=== PATIENT | male | born 1980 | race Caucasian/White ===

== ENCOUNTER 2024-03-18 05:42 | Inpatient (IN) | payer BC ==
[~2024-03-18] VITALS: Ht 182.9 cm; Wt 105.3 kg
[2024-03-18 06:35] VITALS: PULSE 72; RESP 20; O2SAT 98
[2024-03-18 06:37] LABS: Basophils # (auto) 0.1 10 ^3/uL (0-0.2); Basophils % (auto) 1.1 % (0.0-2.0); Eosinophils # (auto) 0.1 10 ^3/uL (0-0.8); Eosinophils % (auto) 1.7 % (0.0-7.0); Hematocrit 49.4 % (41.0-53.0); Hemoglobin 16.4 g/dL (13.5-17.5); Lymphocytes # (auto) 1.3 10 ^3/uL (0.4-5.4); Lymphocytes % (auto) 16.7 % (10.0-50.0); Mean Corpuscular Hemoglobin 29.4 pg (28.0-32.0); Mean Corpuscular Hgb Conc. 33.3 g/dL (32.0-36.0); Mean Corpuscular Volume 88.2 fL (80.0-100.0); Monocytes # (auto) 0.6 10 ^3/uL (0-1.3); Neutrophils # (auto) 5.7 10 ^3/uL (1.6-8.6); Neutrophils % (auto) 72.5 % (37.0-80.0); Platelet Count (auto) 245 10^3/uL (140-450); Red Blood Cells 5.59 10^6/uL (4.5-5.90); Red Cell Distribution Width 14.9 % (11.8-14.3); White Blood Cell 7.9 10^3/uL (4.4-10.8)
--- NOTE | 2024-03-18 06:44 | DVH ---
CHEST RADIOGRAPH Indication: CP Technique: Single frontal view of the chest was obtained COMPARISON: None FINDINGS: Lines and Tubes: None Lungs: Diffuse increased interstitial prominence Pleura: No effusion. No pneumothorax. Cardiomediastinal contours: Cardiomegaly Bones: Unremarkable IMPRESSION: Pulmonary vascular congestion
[2024-03-18 06:49] LABS: Alanine Aminotransferase 40 U/L (7-40); Albumin 4.3 g/dL (3.2-4.8); Anion Gap 8 (5-15); Aspartate Aminotransferase 20 U/L (13-40); BUN/Creatinine Ratio 6.8 (10.0-20.0); Bilirubin, Total 0.5 mg/dL (0.2-1.0); Calcium 9.4 mg/dL (8.7-10.4); Carbon Dioxide 23 mmol/L (20-31); Potassium 4.4 mmol/L (3.5-5.1); Sodium 139 mmol/L (136-145); Total Protein 6.7 g/dL (5.7-8.2)
[2024-03-18 06:55] LABS: Alkaline Phosphatase 29 U/L (46-116); Blood Urea Nitrogen 8 mg/dL (9-23); Chloride 108 mmol/L (98-107); Glucose 108 mg/dL (74-106)
--- NOTE | 2024-03-18 06:57 | ECG ---
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
[2024-03-18 07:20] VITALS: PULSE 150; RESP 16; O2SAT 98
--- NOTE | 2024-03-18 07:48 | ED.PDOC ---
SOB-HPI HPI Comments 43 year old male presents to the ED with chief complaint of SOB. Patient reports that he has been experiencing SOB with associated symptoms of purple discoloration to hands and right hand pain since yesterday. Patient relays that he vapes regularly. Patient denies any chest pain, cough, fever, chills, dizziness, or N/V. Chief Complaint: Shortness of Breath Time Seen by MD: 07:44 Reviewed notes: Nurses Notes, Medications, Allergies Information Source: Patient Mode of Arrival: Ambulatory Severity: Moderate Timing: Days Duration: Since onset Context: At Rest PE Risk Factors: None History of: None Prehospital treatment: None Modifying Factors: Sitting up, Nothing Associated Signs and Symptoms: Hands Past Medical History PAST MEDICAL HISTORY: Denies Surgical History: Appendectomy Family History Family History: Reviewed,noncontributory to illness Social History Smoker: Other (Vapes) Alcohol: Sober Drugs: Denies Drug Use Lives In: Home Constitutional: denies: chills, diaphoresis, fatigue, fever, malaise, sweats, weakness, others EENTM: denies: blurred vision, double vision, ear bleeding, ear discharge, ear drainage, ear pain, ear ringing, eye pain, eye redness, hearing loss, mouth pain, mouth swelling, nasal discharge, nose bleeding, nose congestion, nose pain, photophobia, tearing, throat pain, throat swelling, voice changes, others Respiratory: reports: shortness of breath; denies: cough, hemoptysis, orthopnea, SOB at rest, SOB with excertion, stridor, wheezing, others Cardiovascular: denies: chest pain, dizzy spells, diaphoresis, Dyspnea on exertion, edema, irregular heart beat, left arm pain, lightheadedness, palpit ations, PND, syncope, others Gastrointestinal: denies: abdomen distended, abdominal pain, blood streaked b owels, constipated, diarrhea, dysphagia, difficulty swallowing, hematemesis, melena, nausea, poor appetite, poor fluid intake, rectal bleeding, rectal pain, vomiting, others Genitourinary: denies: burning, dysuria, flank pain, frequency, hematuria, incontinence, penile discharge, penile sore, pain, testicle pain, testicle swelling, urgency, others Neurological: denies: dizziness, fainting, headache, left sided numbness, left sided weakness, numbness, paresthesia, pre-existing deficit, right sided numbness, right sided weakness, seizure, speech problems, tingling, tremors, weakness, others Musculoskeletal: reports: others (Rt hand pain); denies: back pain, gout, joint pain, joint swelling, muscle pain, muscle stiffness, neck pain Integumetry: reports: change in color (purple discoloration to hands); denies: bruises, change in hair/nails, dryness, laceration, lesions, lumps, rash, wo unds, others Allergic/Immunocompromised: denies: Difficulty Healing, Frequent Infections, Hives, Itching, others Hematologic/Lymphatic: denies: anemia, blood clots, easy bleeding, easy bruising, swollen glands, others Endocrine: denies: excessive hunger, excessive sweating, excessive thirst, excessive urination, flushing, intolerance to cold, intolerance to heat, unexplained weight gain, unexplained weight loss, others Psychiatric: denies: anxiety, bipolar disorder, depression, hopeless, panic disorder, schizophrenia, sleepless, suicidal, others All Other Systems: Reviewed and Negative Physical Exam General Appearance: Mild Distress, Moderate Distress, Normal, Other (Sudden onset of dyspnea) HEENT: Normal ENT Inspection, PERRL/EOMI Neck: Full Range of Motion, Non-Tender, Normal, Normal Inspection Respiratory: Chest Non-Tender, Lungs Clear, No Accessory Muscle Use, No Respiratory Distress, Normal Breath Sounds Cardiovascular: Irregular, No Edema, No JVD, No Murmur, No Gallop, Normal Peripheral Pulses, Regular Rate/Rhythm, Tachycardia Breast Exam: Deferred Gastrointestinal: No Organomegaly, Non Tender, No Pulsatile Mass, Normal Bowel Sounds, Soft Genitalia: Deferred Pelvic: Deferred Rectal: Deferred Extremities: No calf tenderness, Normal capillary refill, Normal inspection, Normal range of motion, Non-tender, No pedal edema Musculoskeletal : Apperance: Normal 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 Was a procedure done?: No Differential Dx Differential Diagnosis: CHF, Dysrhythmia, Hyperventilation, Hyponatremia, Myocardial infarction, Pneumonia, Pulmonary Embolism X-Ray, Labs, Meds, VS Vital Signs Date Time Temp Pulse Resp B/P (MAP) Pulse Ox O2 Delivery O2 Flow Rate FiO2 03/18/24 12:00 124 03/18/24 11:30 124 16 104/63 (77) 98 03/18/24 09:50 144 20 112/52 (72) 98 03/18/24 09:39 145 03/18/24 09:20 129 18 107/49 (68) 98 03/18/24 08:53 134 106/64 03/18/24 08:00 140 03/18/24 07:53 140 105/54 03/18/24 07:20 98.3 150 16 105/54 (71) 98 98.3 03/18/24 07:20 150 16 98 Room Air* 0 21 03/18/24 06:56 145 03/18/24 06:35 72 20 98 Room Air* 0 21 03/18/24 06:35 98.4 72 20 133/73 (93) 98 98.4 03/18/24 06:08 153 03/18/24 05:56 98.4 72 20 133/73 (93) 98 Lab Test 03/18/24 08:53 03/18/24 07:01 03/18/24 06:11 Range/Units Troponin I High Sensitivity 12 13 13 </=54 ng/L White Blood Count 7.9 4.4-10.8 10^3/uL Red Blood Count 5.59 4.5-5.90 10^6/uL Hemoglobin 16.4 13.5-17.5 g/dL Hematocrit 49.4 41.0-53.0 % Mean Corpuscular Volume 88.2 80.0-100.0 fL Mean Corpuscular Hemoglobin 29.4 28.0-32.0 pg Mean Corpuscular Hemoglobin Concent 33.3 32.0-36.0 g/dL Red Cell Distribution Width 14.9 H 11.8-14.3 % Platelet Count 245 140-450 10^3/uL Mean Platelet Volume 8.3 6.9-10.8 fL Neutrophils (%) (Auto) 72.5 37.0-80.0 % Lymphocytes (%) (Auto) 16.7 10.0-50.0 % Monocytes (%) (Auto) 8.0 0.0-12.0 % Eosinophils (%) (Auto) 1.7 0.0-7.0 % Basophils (%) (Auto) 1.1 0.0-2.0 % Neutrophils # (Auto) 5.7 1.6-8.6 10 ^3/uL Lymphocytes # (Auto) 1.3 0.4-5.4 10 ^3/uL Monocytes # (Auto) 0.6 0-1.3 10 ^3/uL Eosinophils # (Auto) 0.1 0-0.8 10 ^3/uL Basophils # (Auto) 0.1 0-0.2 10 ^3/uL Nucleated Red Blood Cells 0.0 % Prothrombin Time 10.9 9.3-11.8 sec Prothrombin Time INR 1.03 0.9-1.15 Activated Partial Thromboplast Time 24.4 L 24.5-34.5 SEC D-Dimer, Quantitative 0.70 H 0.0-0.49 mg/L FEU Sodium Level 139 136-145 mmol/L Potassium Level 4.4 3.5-5.1 mmol/L Chloride Level 108 H 98-107 mmol/L Carbon Dioxide Level 23 20-31 mmol/L Anion Gap 8 5-15 Blood Urea Nitrogen 8 L 9-23 mg/dL Creatinine 1.18 0.700-1.30 mg/dL Glomerular Filtration Rate Calc 79 >90 mL/min BUN/Creatinine Ratio 6.8 L 10.0-20.0 Serum Glucose 108 H 74-106 mg/dL Hemoglobin A1c 5.7 <5.7 % A1C Calcium Level 9.4 8.7-10.4 mg/dL Magnesium Level 2.1 1.6-2.6 mg/dL Total Bilirubin 0.5 0.2-1.0 mg/dL Aspartate Amino Transferase (AST) 20 13-40 U/L Alanine Aminotransferase (ALT) 40 7-40 U/L Alkaline Phosphatase 29 L 46-116 U/L B-Type Natriuretic Peptide 287.34 0-100 pg/mL Total Protein 6.7 5.7-8.2 g/dL Albumin 4.3 3.2-4.8 g/dL Triglycerides Level 115 < 150 mg/dL Cholesterol Level 142 < 200 mg/dL LDL Cholesterol 108 H < 100 mg/dL HDL Cholesterol 31 L 40-59 mg/dL Thyroid Stimulating Hormone (TSH) 2.57 0.55-4.78 uIU/mL Current Medications Medications (Trade) Dose Ordered Sig/Nimco Route Start Time Stop Time Status Last Admin Aspirin 162 mg ONCE ONCE PO 03/18/24 07:15 03/18/24 07:16 DC 03/18/24 07:52 Sodium Chloride 1,000 ml @ 500 mls/hr Q2H ONCE IVB 03/18/24 07:15 03/18/24 09:14 DC 03/18/24 07:53 Sodium Chloride 1,000 ml @ 150 mls/hr Q6H40M ONCE IV 03/18/24 07:15 03/18/24 13:54 DC 03/18/24 08:09 Metoprolol Tartrate (Lopressor) 5 mg ONCE ONCE IV 03/18/24 07:15 03/18/24 07:16 DC 03/18/24 07:53 Sodium Chloride 1,000 ml @ 500 mls/hr Q2H ONCE IVB 03/18/24 09:30 03/18/24 11:29 DC 03/18/24 09:46 Diltiazem HCl (Cardizem Injection) 20 mg ONCE ONCE IV 03/18/24 09:30 03/18/24 09:31 DC 03/18/24 10:10 Ketorolac Tromethamine (Toradol Injection) 30 mg ONCE ONCE IV 03/18/24 13:00 03/18/24 13:01 DC 03/18/24 13:25 Chest XR: FINDINGS: Lines and Tubes: None Lungs: Diffuse increased interstitial prominence Pleura: No effusion. No pneumothorax. Cardiomediastinal contours: Cardiomegaly Bones: Unremarkable IMPRESSION: Pulmonary vascular congestion CT ANGIO: Findings: Pulmonary artery: No pulmonary embolism Lower neck: Normal thyroid. Lungs: Septal thickening, atelectasis, and scarring in the lung bases. No focal consolidation. No suspicious nodule. Heart/Vascular Structures: Normal heart size. No pericardial effusion. Lymph Nodes: Prominent right hilar lymph node measuring up to 13 mm. Subcentimeter mediastinal lymph nodes. Pleura: No pleural effusion or significant pneumothorax. Musculoskeletal: No acute osseous abnormality. Soft tissues: Normal. Upper abdomen: Limited portions of the upper abdomen are unremarkable. IMPRESSION: 1. No pulmonary embolism. 2. Septal thickening, atelectasis, and scarring in the lung bases is no nspecific. Prominent right hilar lymph node is of unclear significance. Clinical correlation and continued follow-up is recommended. Consider follow-up chest CT in 3-6 months.. X-Ray, Labs, Meds, VS Comment In the emergency department eventful patient came in complaining of sudden onset of shortness of breath after he went to the bathroom The chest x-ray shows pulmonary vascular congestion EKG shows uncontrolled atrial fibrillation at 1:45 a.m. with a right axis deviation CBC normal CMP negative Troponin 13 and 13 INR 1.03 D-dimer elevated at 0.70 TSH 2.57 BNP 287.[address] angio shows no pulmonary embolism but a hilar lymph node on the right side Patient will be admitted for further care Images Reviewed?: Images reviewed and evaluated by me Time of 1ST Reevaluation: 08:44 Reevaluation 1ST: Unchanged Patient Education/Counseling: Diagnosis, Treatment ( ) Family Education/Counseling: No Family Present Departure 1 Departure Time of Disposition: 12:06 Impression: Primary Impression: Dyspnea and respiratory abnormalities Additional Impressions: Paroxysmal atrial fibrillation Elevated d-dimer Pulmonary vascular congestion Disposition: 09 ADMITTED INPATIENT Admit to: Tele Condition: Serious Critical Care Note Critical Care Time?: No Stability Stability form required: Yes Unstable for transfer: Telemetry monitoring (Telemetry monitoring required), Requires medication (Requires Med for stabilization) Heart Score Heart Score: Heart Score Response (Comments) Value History Moderate Suspicious 1 EKG Repolarization Disturb 1 Age <45 0 Risk Factors No known risk factors 0 Troponin Normal limit 0 Total 2 I personally scribed for KENDRICK BRIGGS MD ([email or web address]) on 03/18/24 at 07:48. Electronically submitted by Garima Ortiz ([email or web address]). I personally scribed for KENDRICK BRIGGS MD ([email or web address]) on 03/18/24 at 08:00. Electronically submitted by Farrukh Tyler ([email or web address]). I personally scribed for KENDRICK BRIGGS MD ([email or web address]) on 03/18/24 at 17:08. Electronically submitted by Garima Ortiz ([email or web address]). KENDRICK BRIGGS MD Mar 18, 2024 07:48
[2024-03-18 07:50] LABS: Magnesium 2.1 mg/dL (1.6-2.6)
[2024-03-18 07:51] LABS: INR 1.03 (0.9-1.15); Partial Thromboplastin Time 24.4 SEC (24.5-34.5); Prothrombin Time 10.9 sec (9.3-11.8)
[2024-03-18] MEDS: ASPirin 81 mg TAB PO ONE (07:52)
[2024-03-18] MEDS: METOPROLOL TARTRATE 1MG/1ML-5ML VIAL IV ONE (07:53)
[2024-03-18] MEDS: SODIUM CHLORIDE 0.9% 1,000 ML IVB ONE ×2 (07:53→09:46)
[2024-03-18] MEDS: SODIUM CHLORIDE 0.9% 1,000 ML IV ONE (08:09)
[2024-03-18] MEDS: IOHEXOL 350 MG/ML 100ML IJ ONE (09:53)
[2024-03-18] MEDS: dilTIAZem 25 MG/5 ML VIAL IV ONE (10:10)
--- NOTE | 2024-03-18 10:31 | ECG ---
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
--- NOTE | 2024-03-18 10:53 | DVH ---
CTA Chest with intravenous contrast INDICATION: Pulmonary embolism COMPARISON: None TECHNIQUE: Multidetector spiral CTA of the chest was performed of the chest with intravenous contrast . PULMONARY ANGIOGRAPHY PROTOCOL was utilized using a bolus-tracking technique centered on the main p ulmonary artery. Axial, coronal and sagittal multiplanar and MIP reformats were performed. CONTRAST: Type of contrast: Omni 350 Contrast injected: 100 ml Radiation dose : Chest: CTDI volume is 50 mGy. Dose-length product is 682 mGy*cm The dose indicators for CT are the volume computed Tomography (CT) dose Index (CTDIvol) and the dose Length product (DLP), and are measured in units of mGy and mGy-cm, respectively. These indicators are not patient dose, but values generated from the CT scanner acquisition factors. The report includes radiation exposure data for exposures received during this examination. Findings: Pulmonary artery: No pulmonary embolism Lower neck: Normal thyroid. Lungs: Septal thickening, atelectasis, and scarring in the lung bases. No focal consolidation. No mariano picious nodule. Heart/Vascular Structures: Normal heart size. No pericardial effusion. Lymph Nodes: Prominent right hilar lymph node measuring up to 13 mm. Subcentimeter mediastinal lymph nodes. Pleura: No pleural effusion or significant pneumothorax. Musculoskeletal: No acute osseous abnormality. Soft tissues: Normal. Upper abdomen: Limited portions of the upper abdomen are unremarkable. IMPRESSION: 1. No pulmonary embolism. 2. Septal thickening, atelectasis, and scarring in the lung bases is nonspecific. Prominent right hil ar lymph node is of unclear significance. Clinical correlation and continued follow-up is recommended . Consider follow-up chest CT in 3-6 months.. HS:Y
[2024-03-18] MEDS: KETOROLAC TROMETH 30 MG/ML 1ML VIAL IV ONE (13:25)
[2024-03-18] MEDS ORDERED: ACETAMINOPHEN 325 MG TAB PO PRN (13:30)
[2024-03-18] MEDS ORDERED: MORPHINE SULFATE INJ 2 MG/ml SYRG IV PRN (13:30)
[2024-03-18] MEDS ORDERED: NITROGLYCERIN 0.4 MG SL TAB SL PRN (13:30)
[2024-03-18] MEDS ORDERED: DOCUSATE SOD 100 MG CAP PO PRN (13:30)
[2024-03-18] MEDS ORDERED: HYDROcodone-ACET 5/325MG TAB PO PRN (13:30)
[2024-03-18] MEDS ORDERED: ONDANSETRON HCL 4 MG/2 ML VIAL IV PRN (13:30)
--- NOTE | 2024-03-18 13:48 | DVHHP2 ---
History of Present Illness Reason for Visit: Shortness of breath History of Present Illness Haja Sewell is a 43-year-old male with no significant past medical history, who came in due to shortness of breath. Patient states that his shortness of breath began on Saturday. He woke up and walked to the bathroom and back and states he felt like he had ran a mile. He rested for a few minutes and then felt better. On Saturday he woke up to his right hand being swollen, numb, and finger tips purple. He went to work and in the afternoon his shortness of breath worsened, and he began having chest pressure. He came to the hospital Saturday evening, it was very busy, so he came back this morning. Patient states that he feels like this has been going on for a few months. He has felt palpitations at times, especially when laying down. Patient states that he does take IM testosterone, and was to taking anabolic steroids for about 9 months. Past Surgical History: Appendectomy Family History: None Smoke: No (Vap) ALCOHOL: none Drugs: None Lives: with Family Review of Systems Constitutional: No: Fever, Chills, Sweats, Weakness, Malaise, Other Eyes: No: Pain, Vision change, Conjunctivae inflammation, Eyelid inflammation, Other, Redness ENT: No: Ear pain, Ear discharge, Nose pain, Nose discharge, Nose congestion, Mouth pain, Mouth swelling, Throat pain, Throat swelling, Other Respiratory: Shortness of breath, SOB with excertion; No: Cough, Dry, Wheezing, Hemoptysis, Pleuritic Pain, Sputum, Wheezing, Other Cardiovascular: Other (Chest pressure); No: Chest Pain, Palpitations, Orthopnea, Paroxysmal Noc. Dyspnea, Edema, Lt Headedness Gastrointestinal: No: Nausea, Vomiting, Abdominal Pain, Diarrhea, Constipation, Melena, Hematochezia, Other Genitourinary: No Dysuria, No Frequency, No Incontinence, No Hematuria, No Retention, No Other Musculoskeletal: No: other, neck pain, shoulder pain, arm pain, back pain, hand pain, leg pain, foot pain Skin: No: Rash, Lesions, Jaundice, Bruising, Other Neurological: No: Weakness, Numbness, Incoordination, Change in speech, Confusion, Seizures, Other Allergies: Coded Allergies: NO KNOWN ALLERGIES (Unverified , 03/18/24) Exam Vital Signs Vital Signs Date Time Temp Pulse Resp B/P (MAP) Pulse Ox O2 Delivery O2 Flow Rate FiO2 03/18/24 09:50 144 20 112/52 (72) 98 03/18/24 07:20 98.3 98.3 03/18/24 07:20 Room Air* 0 21 General Appearance: Alert, Oriented X3, Cooperative, moderate distress HEENT: Atraumatic, PERRLA, Mucous membr. moist/pink Respiratory: Clear to auscultation, Normal air movement Cardiovascular: Normal S1, Normal S2, Other (Tachycardia, atrial fibrillation) Abdominal: Normal bowel sounds, Soft, No tenderness Extremities: No clubbing, No cyanosis, No edema, Normal pulses Skin: No rashes, No breakdown, No significant lesion Neuro: Normal gait, Normal speech, Strength at 5/5 X4 ext Psych/Mental Status: Mental status NL, Mood NL Labs/Xrays Labs Test 03/18/24 08:53 03/18/24 06:11 Range/Units Troponin I High Sensitivity 12 </=54 ng/L White Blood Count 7.9 4.4-10.8 10^3/uL Red Blood Count 5.59 4.5-5.90 10^6/uL Hemoglobin 16.4 13.5-17.5 g/dL Hematocrit 49.4 41.0-53.0 % Mean Corpuscular Volume 88.2 80.0-100.0 fL Mean Corpuscular Hemoglobin 29.4 28.0-32.0 pg Mean Corpuscular Hemoglobin Concent 33.3 32.0-36.0 g/dL Red Cell Distribution Width 14.9 H 11.8-14.3 % Platelet Count 245 140-450 10^3/uL Mean Platelet Volume 8.3 6.9-10.8 fL Neutrophils (%) (Auto) 72.5 37.0-80.0 % Lymphocytes (%) (Auto) 16.7 10.0-50.0 % Monocytes (%) (Auto) 8.0 0.0-12.0 % Eosinophils (%) (Auto) 1.7 0.0-7.0 % Basophils (%) (Auto) 1.1 0.0-2.0 % Neutrophils # (Auto) 5.7 1.6-8.6 10 ^3/uL Lymphocytes # (Auto) 1.3 0.4-5.4 10 ^3/uL Monocytes # (Auto) 0.6 0-1.3 10 ^3/uL Eosinophils # (Auto) 0.1 0-0.8 10 ^3/uL Basophils # (Auto) 0.1 0-0.2 10 ^3/uL Nucleated Red Blood Cells 0.0 % Prothrombin Time 10.9 9.3-11.8 sec Prothrombin Time INR 1.03 0.9-1.15 Activated Partial Thromboplast Time 24.4 L 24.5-34.5 SEC D-Dimer, Quantitative 0.70 H 0.0-0.49 mg/L FEU Sodium Level 139 136-145 mmol/L Potassium Level 4.4 3.5-5.1 mmol/L Chloride Level 108 H 98-107 mmol/L Carbon Dioxide Level 23 20-31 mmol/L Anion Gap 8 5-15 Blood Urea Nitrogen 8 L 9-23 mg/dL Creatinine 1.18 0.700-1.30 mg/dL Glomerular Filtration Rate Calc 79 >90 mL/min BUN/Creatinine Ratio 6.8 L 10.0-20.0 Serum Glucose 108 H 74-106 mg/dL Calcium Level 9.4 8.7-10.4 mg/dL Magnesium Level 2.1 1.6-2.6 mg/dL Total Bilirubin 0.5 0.2-1.0 mg/dL Aspartate Amino Transferase (AST) 20 13-40 U/L Alanine Aminotransferase (ALT) 40 7-40 U/L Alkaline Phosphatase 29 L 46-116 U/L B-Type Natriuretic Peptide 287.34 0-100 pg/mL Total Protein 6.7 5.7-8.2 g/dL Albumin 4.3 3.2-4.8 g/dL Thyroid Stimulating Hormone (TSH) 2.57 0.55-4.78 uIU/mL CHEST RADIOGRAPH FINDINGS: Lines and Tubes: None Lungs: Diffuse increased interstitial prominence Pleura: No effusion. No pneumothorax. Cardiomediastinal contours: Cardiomegaly Bones: Unremarkable IMPRESSION: Pulmonary vascular congestion CTA Chest with intravenous contrast INDICATION: Pulmonary embolism Findings: Pulmonary artery: No pulmonary embolism Lower neck: Normal thyroid. Lungs: Septal thickening, atelectasis, and scarring in the lung bases. No focal consolidation. No suspicious nodule. Heart/Vascular Structures: Normal heart size. No pericardial effusion. Lymph Nodes: Prominent right hilar lymph node measuring up to 13 mm. Subcentimet er mediastinal lymph nodes. Pleura: No pleural effusion or significant pneumothorax. Musculoskeletal: No acute osseous abnormality. Soft tissues: Normal. Upper abdomen: Limited portions of the upper abdomen are unremarkable. IMPRESSION: 1. No pulmonary embolism. 2. Septal thickening, atelectasis, and scarring in the lung bases is nonspecific. Prominent right hilar lymph node is of unclear significance. Clinical correlation and continued follow-up is recommended. Consider follow-up chest CT in 3-6 months.. Assessment/Plan Assessment/Plan Assessment: New on set Atrial fibrillation with RVR, Plan: Admit to Tele, Cardiology consult, IV amiodarone, ECHO, IV hydration, TSH, Plan discussed with: Patient Date of Service: Mar 18, 2024 Billing Provider: JULY MAY Common Visit Codes: [id number] INP/OBS CARE (MOD) JULY MAY Mar 18, 2024 13:48
[2024-03-18] MEDS: AMIODARONE BOLUS KIT 100 ML IV ONE (14:25)
[2024-03-18] MEDS: AMIODARONE 450mg/250ml AE 250 ML IV SCH ×2 (14:51→20:10)
[2024-03-18 14:55] LABS: Triglycerides 115 mg/dL (< 150)
[2024-03-18 14:57] LABS: Cholesterol 142 mg/dL (< 200)
[2024-03-18] MEDS: SODIUM CHLOR 0.9% PF (SALINE LOCK) 10ML VIAL/SYR IV SCH (14:58)
[2024-03-18 15:00] LABS: HDL Cholesterol 31 mg/dL (40-59); LDL Cholesterol 108 mg/dL (< 100)
--- NOTE | 2024-03-18 15:27 | DVHINCON2 ---
Date Seen: Mar 18, 2024 Referring Physician KALIA Yeh Reason for Consultation New onset Afib with RVR History of Present Illness This is a 43-year-old male patient who presents to emergency room with chief complaint of chest tightness, palpitations, and shortness of breath that began at approximately 3:30 a.m. yesterday. The patient reports he got up to use the restroom and when he came back to bed he started noticing these symptoms. He describes the chest pain as unprovoked, intermittent, tight in nature, and substernal with radiation to his back. The patient decided to try to go back to sleep when he woke up a few hours later and noticed the symptoms did not resolve he decided to drive himself to the emergency room. Initial twelve lead electrocardiogram reveals atrial fibrillation with rapid ventricular response. The patient was given metoprolol 5 mg IV push x1 by emergency room staff. A few hours later, the patient's heart rate was still elevated so the patient was given diltiazem 20 mg IV push x1 per emergency room physician. The patient was also initiated on an amiodarone bolus and drip per protocol. At the time of assessment, the patient remains in atrial fibrillation with rate in 120s. The patient denies any significant past medical history. The patient admits to taking un-prescribed testosterone and regular consumption of energy drinks daily. 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 Per patient report, he no longer does amphetamines. Past Medical History Past medical history reviewed. No other significant than mentioned above. Past Surgical History Appendectomy Family History Family history reviewed. Social History Vapes daily, contains nicotine Patient denies any illicit drug use Patient denies any alcohol use Allergies: Coded Allergies: NO KNOWN ALLERGIES (Unverified , 03/18/24) Home Meds Denies taking any prescribed medications Admits to an prescribed testosterone use Current Medications Current Medications Medications (Trade) Dose Ordered Sig/Nimco Route PRN Reason Start Time Stop Time Status Last Admin Sodium Chloride (Saline Lock Ns) 10 ml Q8HR IV 03/18/24 14:00 03/18/24 14:58 Acetaminophen/ Hydrocodone Bitart ([place] 5/325MG Tab) 1 tab Q4HP PRN PO MODERATE PAIN (4-6 PAIN SCALE) 03/18/24 13:30 Ondansetron HCl (Zofran) 4 mg Q4HP PRN IV NAUSEA / VOMITING 03/18/24 13:30 Docusate Sodium (Colace Capsule) 100 mg BIDPRN PRN PO FOR CONSTIPATION 03/18/24 13:30 Acetaminophen (Tylenol Tablet) 650 mg Q6HP PRN PO PAIN SCALE 1-3 OR TEMP>100.4 03/18/24 13:30 Nitroglycerin (Ntrostat Sublingual) 0.4 mg Q5MINP PRN SL FOR CHEST PAIN 03/18/24 13:30 Morphine Sulfate 2 mg Q30M PRN IV FOR CHEST PAIN 03/18/24 13:30 Amiodarone HCl 250 ml @ 33.333 mls/ hr Q7H30M IV 03/18/24 13:45 03/18/24 19:44 03/18/24 14:51 Amiodarone HCl 250 ml @ 16.667 mls/ hr Q15H IV 03/18/24 19:45 Review of Systems Constitutional: No symptom reported Ears, Nose, & Throat: No symptom reported Eyes: No symptom reported Neurological: No symptoms reported Pulmonary/Respiratory: Shortness of breath Cardiovascular: Chest tightness, palpitations Gastrointestinal: No symptom reported Genitourinary: No symptom reported Musculoskeletal: No symptom reported Skin: No symptom reported Psychiatric: No symptom reported Endocrine: No symptom reported Hematologic/Lymphatic: No symptom reported Vital Signs Vital Signs Date Time Temp Pulse Resp B/P (MAP) Pulse Ox O2 Delivery O2 Flow Rate FiO2 03/18/24 12:00 124 03/18/24 09:50 20 112/52 (72) 98 03/18/24 07:20 98.3 98.3 03/18/24 07:20 Room Air* 0 21 Physical Exam General Appearance: Cooperative. Well-developed. Well-nourished. No acute distr ess. Pulmonary/Respiratory: Clear, bilateral breaths sounds. Cardiovascular/Chest: Irregular rate and rhythm. Peripheral Pulses: 2+ Radial (R). 2+ Radial (L). 2+ Pedal (R). 2+ Pedal (L) Abdominal Exam: Normal bowel sounds. Ankle Exam: Negative ankle edema Lower extremities: Negative lower extremity edema Neuro/Mental Status: A/OX4, coherent. Thoughts/Psych: Normal thought pattern. Appropriate mood and affect. Good judgment and insight. Appearance: No acute distress. Skin Exam: Normal inspection. Normal color. Warm and dry. Labs/Diagnostic Data Labs Test 03/18/24 08:53 03/18/24 06:11 Range/Units Troponin I High Sensitivity 12 </=54 ng/L White Blood Count 7.9 4.4-10.8 10^3/uL Red Blood Count 5.59 4.5-5.90 10^6/uL Hemoglobin 16.4 13.5-17.5 g/dL Hematocrit 49.4 41.0-53.0 % Mean Corpuscular Volume 88.2 80.0-100.0 fL Mean Corpuscular Hemoglobin 29.4 28.0-32.0 pg Mean Corpuscular Hemoglobin Concent 33.3 32.0-36.0 g/dL Red Cell Distribution Width 14.9 H 11.8-14.3 % Platelet Count 245 140-450 10^3/uL Mean Platelet Volume 8.3 6.9-10.8 fL Neutrophils (%) (Auto) 72.5 37.0-80.0 % Lymphocytes (%) (Auto) 16.7 10.0-50.0 % Monocytes (%) (Auto) 8.0 0.0-12.0 % Eosinophils (%) (Auto) 1.7 0.0-7.0 % Basophils (%) (Auto) 1.1 0.0-2.0 % Neutrophils # (Auto) 5.7 1.6-8.6 10 ^3/uL Lymphocytes # (Auto) 1.3 0.4-5.4 10 ^3/uL Monocytes # (Auto) 0.6 0-1.3 10 ^3/uL Eosinophils # (Auto) 0.1 0-0.8 10 ^3/uL Basophils # (Auto) 0.1 0-0.2 10 ^3/uL Nucleated Red Blood Cells 0.0 % Prothrombin Time 10.9 9.3-11.8 sec Prothrombin Time INR 1.03 0.9-1.15 Activated Partial Thromboplast Time 24.4 L 24.5-34.5 SEC D-Dimer, Quantitative 0.70 H 0.0-0.49 mg/L FEU Sodium Level 139 136-145 mmol/L Potassium Level 4.4 3.5-5.1 mmol/L Chloride Level 108 H 98-107 mmol/L Carbon Dioxide Level 23 20-31 mmol/L Anion Gap 8 5-15 Blood Urea Nitrogen 8 L 9-23 mg/dL Creatinine 1.18 0.700-1.30 mg/dL Glomerular Filtration Rate Calc 79 >90 mL/min BUN/Creatinine Ratio 6.8 L 10.0-20.0 Serum Glucose 108 H 74-106 mg/dL Calcium Level 9.4 8.7-10.4 mg/dL Magnesium Level 2.1 1.6-2.6 mg/dL Total Bilirubin 0.5 0.2-1.0 mg/dL Aspartate Amino Transferase (AST) 20 13-40 U/L Alanine Aminotransferase (ALT) 40 7-40 U/L Alkaline Phosphatase 29 L 46-116 U/L B-Type Natriuretic Peptide 287.34 0-100 pg/mL Total Protein 6.7 5.7-8.2 g/dL Albumin 4.3 3.2-4.8 g/dL Triglycerides Level 115 < 150 mg/dL Cholesterol Level 142 < 200 mg/dL LDL Cholesterol 108 H < 100 mg/dL HDL Cholesterol 31 L 40-59 mg/dL Thyroid Stimulating Hormone (TSH) 2.57 0.55-4.78 uIU/mL Assessment Atrial fibrillation with rapid ventricular response, new onset Acute on chronic HFrEF, NYHA class III, newly diagnosed ?Ischemic, ?nonischemic cardiomyopathy Mitral and tricuspid valve regurgitation mild to moderate degree Hyperlipidemia, newly diagnosed Nicotine use History of methamphetamine use Obesity Plan/Recommendation We will continue with the following plan/recommendations (Dr. Bautista): * Echocardiogram reveals EF 15% with global wall akinesia * Initiate guideline directed medical therapy for CHF as tolerated * Initiate beta-rafael after proper diuresis * Initiate entresto with optimal BP * Hold spironolactone given borderline potassium * Strict intake and output, daily weights, maintain fluid restriction * CHA2D2 VASc score: 1 * Initiate beta-rafael for rate control after patient has been diuresed. Consider Digoxin if needed in the meantime * Antiarrhythmic agent, amiodarone * Therapeutic Lovenox while inpatient, transition to NOAC when appropriate * Avoid calcium channel blockers * Monitor and replete electrolytes as needed, keep potassium greater than four and magnesium greater than two Patient seen and examined at bedside with . At this time we will continue with medical management. If the patient's urine drug screen is negative for any illicit substances, we will consider ischemic workup while inpatient when patient more stable. Thank you for allowing us to care for this patient. Please call with any questions or concerns. Critical care time spent: 44 minutes This medical document was created using an electronic medical record system with voice recognition software and computerized dictation system. Although this document has been carefully reviewed, there might still be some phonetic and typographical errors. Occasional wrong-word or ``sound-alike substitutions may have occurred due to the inherent limitations of voice recognition software. These areas are purely typographical due to imperfections of the software programs and do not reflect any compromise in the patient's medical care. Mone alvarez read the chart carefully and recognize, using context, where these substitutions have occurred. Plan discussed with: Patient NYHA Physical activity limitations: Class3(Marked) ordinary Date of Service: Mar 18, 2024 Billing Provider: ALLAN BAUTISTA MD Cardiology Common Codes: [id number] INP/OBS CARE (High) Cardiology Consultation Codes: [id number] CONSULT <45MIN YESSICA MEI Mar 18, 2024 15:27
--- NOTE | 2024-03-18 16:08 | DVHSR ---
APPROVED REPORT EXAM: Two-dimensional and M-mode echocardiogram with Doppler and color Doppler. Blood Pressure: 112/52 mmHg INDICATION new onset atrial fib with rvr RISK FACTORS Height: 6'0, Weight: 225 DIMENSIONS LVDd6.1 (3.8-5.7cm)LA (2D)4.5 (1.9-4.0cm)Aortic Root3.7 (2.0-3.7cm) LVDs5.7 (2.5-4.0cm)LA (MM) (1.9-4.0cm)Aortic Cusp Exc1.6 (1.5-2.0cm) EF (%) 15.0 (55-70%)Rt. Atrium5.0 (1.9-4.0cm)Asc. Aorta3.3 cm IVSd0.9 (0.7-1.1cm)RV (D) (1.8-2.4cm) PWd1.3 (0.7-1.1cm) Mitral Valve MitralMitral Stenosis A wavem/sMV Peak GR.59mmHg E/A ratio0.02D MVAcm2 Aortic Valve Aortic ValveAortic Stenosis V11.08m/Elo Mean GR.3mmHg V21.00m/Elo Peak GR.4mmHg LVOT Diameter2.3 (1.8-2.4cm)Doppler AVA4.48cm2 Pulmonic Valve V20.58m/s Tricuspid Valve TR Velocity2.47m/s [id number] Conclusion Severely dilated left ventricle. Severely reduced left ventricular systolic function with estimated ejection fraction of 15%. There is global wall akinesia. Severely dilated right ventricle. Severely reduced right ventricular systolic function. Moderately elevated right ventricular systolic mm of mercury. Moderately dilated right and left atria. The aortic valve appears normal in structure and function. There is [id number] mitral valve regurgitation. There is [id number] tricuspid valve regurgitation. The pulmonary valve is grossly normal. No pericardial effusion.
[2024-03-18] MEDS: FUROSEMIDE 20 MG/2 ML VIAL IV SCH (18:00)
[2024-03-18 18:03] LABS: Urine Bacteria None Seen /hpf (None Seen)
[2024-03-18 18:34] LABS: Amphetamine Screen, Urine Neg (NEGATIVE); Cannabinoid Screen, Urine Pos (NEGATIVE); Cocaine Screen, Urine Pos (NEGATIVE)
[2024-03-18 18:39] LABS: Barbiturate Scree,Urine Neg (NEGATIVE); Benzodiazephine Screen, Urine Neg (NEGATIVE); Opiate Scree,Urine Neg (NEGATIVE); Phencyclidine Screen, Urine Neg (NEGATIVE)
[2024-03-18 18:40] LABS: Urine Blood Negative /uL (Negative); Urine Clarity Clear (Clear); Urine Color Yellow (Yellow); Urine Mucus FEW (None Seen); Urine Protein, UAD 3+ (Negative); Urine Urobilinogen Normal (Negative); Urine WBC 1 /hpf (0 - 3); Urine pH 6.5 (5.0-9.0)
[2024-03-18 18:41] LABS: Urine Specific Gravity > 1.050 (1.001-1.035)
[2024-03-18] MEDS: KETOROLAC TROMETH 30 MG/ML 1ML VIAL IV PRN (18:41)
[2024-03-18 19:45] VITALS: PULSE 130; RESP 17; O2SAT 96
[2024-03-18] MEDS: ENOXAPARIN SOD 100 MG/1 ML SYRINGE SC SCH (22:15)
[2024-03-19 06:44] LABS: Albumin 4.1 g/dL (3.2-4.8); Anion Gap 11 (5-15); Aspartate Aminotransferase 28 U/L (13-40); BUN/Creatinine Ratio 9.3 (10.0-20.0); Blood Urea Nitrogen 11 mg/dL (9-23); Glucose 96 mg/dL (74-106); Potassium 4.7 mmol/L (3.5-5.1); Sodium 137 mmol/L (136-145); Total Protein 6.2 g/dL (5.7-8.2)
[2024-03-19 06:46] LABS: Alanine Aminotransferase 51 U/L (7-40); Alkaline Phosphatase 25 U/L (46-116); Calcium 7.9 mg/dL (8.7-10.4); Carbon Dioxide 17 mmol/L (20-31); Chloride 109 mmol/L (98-107)
[2024-03-19 06:57] LABS: Basophils # (auto) 0.1 10 ^3/uL (0-0.2); Basophils % (auto) 0.5 % (0.0-2.0); Eosinophils # (auto) 0.1 10 ^3/uL (0-0.8); Eosinophils % (auto) 0.5 % (0.0-7.0); Hematocrit 49.3 % (41.0-53.0); Hemoglobin 16.5 g/dL (13.5-17.5); Lymphocytes # (auto) 0.9 10 ^3/uL (0.4-5.4); Mean Corpuscular Hemoglobin 29.8 pg (28.0-32.0); Mean Corpuscular Hgb Conc. 33.5 g/dL (32.0-36.0); Mean Corpuscular Volume 89.1 fL (80.0-100.0); Monocytes # (auto) 0.8 10 ^3/uL (0-1.3); Neutrophils # (auto) 9.5 10 ^3/uL (1.6-8.6); Platelet Count (auto) 227 10^3/uL (140-450); Red Blood Cells 5.54 10^6/uL (4.5-5.90); Red Cell Distribution Width 15.4 % (11.8-14.3); White Blood Cell 11.3 10^3/uL (4.4-10.8)
[2024-03-19 08:35] VITALS: PULSE 126; RESP 22; O2SAT 94
[2024-03-19] MEDS: DIGOXIN (250MCG/ML) 2 ML AMPULE IV ONE ×2 (08:56→17:40)
[2024-03-19] MEDS: EMPAGLIFLOZIN 10 MG TAB PO SCH (10:02)
--- NOTE | 2024-03-19 11:52 | DVHPN2 ---
Assessment/Plan Assessment/Plan Progress note Subjective 43-year-old male admitted for newly diagnosed AFib with RVR. Also had newly diagnosed heart failure with reduced ejection fraction, patient was extra meth user, quit for the past 15 years, ex-smoker 2 packs a day for 10 years, quit 5 years ago, now vapes daily, prior alcohol use socially, last drink 2 months ago, denies using cocaine however U tox positive for cocaine. High BMI attributed to high muscle mass as patient worked out regularly and eat low-fat diet. Objective Physical exam Alert, oriented x3 PERRLA Not physically obese No JVD Clear breath sounds bilaterally S1-S2 tachycardia, irregular Abdomen soft nontender, no organomegaly Moving all four extremities No lower extremity edema Lab WBC 11 BNP 280 Troponin normal EKG AFib with rapid ventricular response Imaging Echo with half for F ejection fraction 15%, pulmonary hypertension, MR, TR Chest x-ray clear CT chest with scarring and hilar lymphadenopathy Assessment and plan AFib with RVR Newly diagnosed heart failure with reduced ejection fraction, EF 15% Acute on chronic systolic heart failure Pulmonary hypertension Mitral regurgitation Tricuspid regurgitation Tobacco use History of meth use U tox positive for cocaine BMI of 30 attributed to muscle mass Dyslipidemia Abnormal CT chest Cardiac consult appreciated Continue with amnio drip, digitize Anticoagulation with Lovenox while inpatient Titrate up GDM T as tolerated Start with Jardiance, metoprolol Diuresing euvolemia Nicotine replacement therapy Lipitor On discharge patient will need follow up CT scan 6 months Replete electrolytes Diet heart healthy DVT prophylaxis full-dose Lovenox 15 minutes spent discussing regarding lifestyle, dietary and exercise changes to modify disease process and improve quality of life 10 minutes spent discussing her past smoking cessation 66 minutes critical care time spent on this patient including evaluation, chart review, formulating plan and communication with team, excluding any procedures or point of care imaging Plan discussed with: Patient My Orders Orders - MARKOS SAAB MD Procedure Category Date Status Time Nicotine 7mg/24hr PHA 03/20/24 Transmitted (Nicoderm 7mg/24hr) 10:00 Nicotine 7mg/24hr PHA 03/19/24 Transmitted (Nicoderm 7mg/24hr) 11:45 Date of Service: Mar 19, 2024 Billing Provider: MARKOS SAAB MD Common Visit Codes: [id number] INP/OBS CARE(HIGH), [id number] CARE 30-74 MIN Secondary Visit Codes: [id number] COUNSELING IND, [id number] CHNG SMOKING >10MIN MARKOS SAAB MD Mar 19, 2024 11:52
[2024-03-19] MEDS: NICOTINE 7MG/24HR TOPICAL PATCH TD ONE (12:05)
--- NOTE | 2024-03-19 16:41 | DVHPN2 ---
Consult Progress Note Subjective Other Systems: Patient remains in atrial fibrillation at time of assessment Objective vital signs Vital Sign Date Time Temp Pulse Resp B/P (MAP) Pulse Ox O2 Delivery O2 Flow Rate FiO2 03/19/24 15:01 117 14 100/65 (77) 95 03/19/24 08:35 Room Air* 0 21 03/19/24 08:34 98.6 98.6 Total Intake and Output 03/18/24 03/18/24 03/19/24 14:59 22:59 06:59 Intake Total 2868 ml 1 ml 557.168 ml Output Total 300 ml Balance 2868 ml 1 ml 257.168 ml medications Current Medications Medications Dose Ordered Sig/Nimco Route Start Time Stop Time Status Last Admin Dose Admin Sodium Chloride 10 ml Q8HR IV 03/18/24 14:00 03/19/24 14:06 10 ML Acetaminophen 650 mg Q6HP PRN PO 03/18/24 13:30 Amiodarone HCl 250 ml @ 16.667 mls/ hr Q15H IV 03/18/24 19:45 03/19/24 01:45 16.667 MLS/HR Ketorolac Tromethamine 15 mg Q6HPRN PRN IV 03/18/24 18:00 03/23/24 17:59 03/19/24 13:01 15 MG Furosemide 20 mg BIDD IV 03/18/24 18:00 03/19/24 06:38 20 MG Empaglifozin 10 mg DAILY PO 03/19/24 10:00 03/19/24 10:02 10 MG Enoxaparin Sodium 100 mg Q12HR SC 03/18/24 22:00 03/19/24 10:02 100 MG Nicotine 1 patch DAILY TD 03/20/24 10:00 Examination: GENERAL:Normal, LUNGS:Normal, CVS:Normal, NEURO:Normal laboratory and microbiology Laboratory Tests 03/19/24 05:05 Test 03/19/24 05:05 Range/Units Serum Glucose 96 74-106 mg/dL Problem List/Assessment/Plan Problem List/Assessment/Plan Atrial fibrillation with rapid ventricular response, new onset Acute on chronic HFrEF, NYHA class III, newly diagnosed ?Ischemic/?nonischemic cardiomyopathy, 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 Bautista): * Echocardiogram reveals EF 15% with global wall akinesia * Initiate guideline directed medical therapy for CHF as tolerated * Initiate beta-rafael after proper diuresis * Initiate entresto with optimal BP * Hold spironolactone given borderline potassium * Strict intake and output, daily weights, maintain fluid restriction * CHA2D2 VASc score: 1 * Hold beta-rafael given positive cocaine use on toxicology. Given loading dose Digoxin for rate control * Antiarrhythmic agent, amiodarone * Therapeutic Lovenox while inpatient, transition to NOAC when appropriate * Avoid calcium channel blockers * Monitor and replete electrolytes as needed, keep potassium greater than four and magnesium greater than two Patient seen and examined at bedside with . Toxicology report comes back positive for cocaine use. Patient denies any cocaine use. At this time, patient is not an ideal candidate for any invasive workup given noncompliance. We will treat the patient with medical management. Thank you for allowing us to care for this patient. Please call with any questions or concerns. This medical document was created using an electronic medical record system with voice recognition software and computerized dictation system. Although this document has been carefully reviewed, there might still be some phonetic and typographical errors. Occasional wrong-word or ``sound-alike substitutions may have occurred due to the inherent limitations of voice recognition software. These areas are purely typographical due to imperfections of the software programs and do not reflect any compromise in the patient's medical care. Please read the chart carefully and recognize, using context, where these substitutions have occurred. Plan discussed with: Patient Date of Service: Mar 19, 2024 Billing Provider: ALLAN BAUTISTA MD Common Visit Codes: [id number] INP/OBS CARE(HIGH) YESSICA MIE [employer] Mar 19, 2024 16:41
[2024-03-19 17:00] VITALS: BP 112/84; PULSE 70; RESP 18; TEMP 97.6; O2SAT 94
[2024-03-19 20:00] VITALS: PULSE 131; RESP 18; O2SAT 93
[2024-03-19 20:40] VITALS: BP 106/58; PULSE 67; RESP 18; TEMP 98; O2SAT 93
[2024-03-20] VITALS (9 sets, daily range): BP systolic 94–131; BP diastolic 46–75; PULSE 56–116; RESP 16–18; TEMP 97.3–98.3; O2SAT 91–96
[2024-03-20 07:09] LABS: Basophils # (auto) 0 10 ^3/uL (0-0.2); Basophils % (auto) 0.5 % (0.0-2.0); Eosinophils # (auto) 0.1 10 ^3/uL (0-0.8); Hematocrit 48.5 % (41.0-53.0); Hemoglobin 16.3 g/dL (13.5-17.5); Lymphocytes % (auto) 11.4 % (10.0-50.0); Mean Corpuscular Hemoglobin 29.8 pg (28.0-32.0); Mean Corpuscular Hgb Conc. 33.7 g/dL (32.0-36.0); Mean Corpuscular Volume 88.4 fL (80.0-100.0); Monocytes # (auto) 0.7 10 ^3/uL (0-1.3); Monocytes % (auto) 8.1 % (0.0-12.0); Neutrophils # (auto) 6.8 10 ^3/uL (1.6-8.6); Nucleated Red Blood Cells % 0.1 %; Platelet Count (auto) 194 10^3/uL (140-450); Red Blood Cells 5.48 10^6/uL (4.5-5.90); Red Cell Distribution Width 14.8 % (11.8-14.3); White Blood Cell 8.6 10^3/uL (4.4-10.8)
[2024-03-20 07:19] LABS: Anion Gap 8 (5-15); Carbon Dioxide 23 mmol/L (20-31); Potassium 4.4 mmol/L (3.5-5.1); Sodium 139 mmol/L (136-145)
[2024-03-20 07:25] LABS: BUN/Creatinine Ratio 12.4 (10.0-20.0); Blood Urea Nitrogen 15 mg/dL (9-23); Glucose 93 mg/dL (74-106)
[2024-03-20 07:52] LABS: Chloride 108 mmol/L (98-107)
--- NOTE | 2024-03-20 09:22 | DVHPN2 ---
Assessment/Plan Assessment/Plan Progress note Subjective 43-year-old male admitted for newly diagnosed AFib with RVR. Also had newly diagnosed heart failure with reduced ejection fraction, patient was extra meth user, quit for the past 15 years, ex-smoker 2 packs a day for 10 years, quit 5 years ago, now vapes daily, prior alcohol use socially, last drink 2 months ago, denies using cocaine however U tox positive for cocaine. High BMI attributed to high muscle mass as patient worked out regularly and eat low-fat diet. Patient seen by me during rounds Rate controlled on amio and digoxin. Will need GDMT optimization prioritizing BB for rate control. Objective Physical exam Alert, oriented x3 PERRLA Not physically obese No JVD Clear breath sounds bilaterally S1-S2 ireegular rhythm, regular rate Abdomen soft nontender, no organomegaly Moving all four extremities No lower extremity edema Lab WBC 11 BNP 280 Troponin normal EKG AFib with rapid ventricular response Imaging Echo with half for F ejection fraction 15%, pulmonary hypertension, MR, TR Chest x-ray clear CT chest with scarring and hilar lymphadenopathy Assessment and plan AFib with RVR Newly diagnosed heart failure with reduced ejection fraction, EF 15% Acute on chronic systolic heart failure Pulmonary hypertension Mitral regurgitation Tricuspid regurgitation Tobacco use History of meth use U tox positive for cocaine BMI of 30 attributed to muscle mass Dyslipidemia Abnormal CT chest Cardiac consult appreciated Continue with amnio drip, digitize Anticoagulation with Lovenox while inpatient Titrate up GDM T as tolerated Start with Jardiance, metoprolol Diuresing euvolemia Nicotine replacement therapy Lipitor On discharge patient will need follow up CT scan 6 months Replete electrolytes Diet heart healthy DVT prophylaxis full-dose Lovenox 15 minutes spent discussing regarding lifestyle, dietary and exercise changes to modify disease process and improve quality of life 10 minutes spent discussing her past smoking cessation Plan discussed with: Patient My Orders Orders - MARKOS SAAB MD Procedure Category Date Status Time Nicotine 7mg/24hr PHA 03/20/24 In Process (Nicoderm 7mg/24hr) 10:00 Date of Service: Mar 20, 2024 Billing Provider: MARKOS SAAB MD Common Visit Codes: [id number] INP/OBS CARE(HIGH) MARKOS SAAB MD Mar 20, 2024 09:22
[2024-03-20] MEDS: METOPROLOL SUCCINATE XL 50 MG TAB PO SCH (10:00)
[2024-03-20] MEDS: DIGOXIN 0.125 MG TAB PO SCH (10:16)
[2024-03-20] MEDS: NICOTINE 7MG/24HR TOPICAL PATCH TD SCH (10:22)
[2024-03-20] MEDS: SPIRONOLACTONE 25 MG TAB PO ONE (16:45)
--- NOTE | 2024-03-20 16:48 | DVHPN2 ---
Consult Progress Note Date Seen: Mar 20, 2024 Subjective Review of Systems: CVS:Normal, RESPIRATORY:Normal, NEURO:Normal Other Systems: Continues in a-fib uncontrolled rate, denies any cardiac symptoms. Objective vital signs Vital Sign Date Time Temp Pulse Resp B/P (MAP) Pulse Ox O2 Delivery O2 Flow Rate FiO2 03/20/24 12:57 97.3 56 17 101/75 (84) 92 97.3 03/20/24 08:00 Room Air* 0 21 Total Intake and Output 03/19/24 03/19/24 03/20/24 15:00 23:00 07:00 Intake Total 613.336 ml 775 ml 732.6 ml Output Total 900 ml 1270 ml Balance -286.664 ml 775 ml -537.4 ml medications Current Medications Medications Dose Ordered Sig/Nimco Route Start Time Stop Time Status Last Admin Dose Admin Sodium Chloride 10 ml Q8HR IV 03/18/24 14:00 03/20/24 05:51 10 ML Acetaminophen 650 mg Q6HP PRN PO 03/18/24 13:30 Amiodarone HCl 250 ml @ 16.667 mls/ hr Q15H IV 03/18/24 19:45 03/20/24 06:17 16.667 MLS/HR Ketorolac Tromethamine 15 mg Q6HPRN PRN IV 03/18/24 18:00 03/23/24 17:59 03/20/24 05:58 15 MG Empaglifozin 10 mg DAILY PO 03/19/24 10:00 03/20/24 10:16 10 MG Enoxaparin Sodium 100 mg Q12HR SC 03/18/24 22:00 03/20/24 10:17 100 MG Nicotine 1 patch DAILY TD 03/20/24 10:00 03/20/24 10:22 1 PATCH Digoxin 0.125 mg DAILY PO 03/20/24 10:00 03/20/24 10:16 0.125 MG Furosemide 40 mg BIDD PO 03/20/24 18:00 Metoprolol Succinate 25 mg DAILY PO 03/20/24 10:00 Examination: LUNGS:Normal, CVS:Abnormal (A-fib with RVR), NEURO:Normal laboratory and microbiology Laboratory Tests 03/20/24 06:12 Test 03/20/24 06:12 Range/Units Serum Glucose 93 74-106 mg/dL Problem List/Assessment/Plan Problem List/Assessment/Plan Atrial fibrillation with rapid ventricular response, new onset Acute on chronic HFrEF, NYHA class III, newly diagnosed 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 Bautista) * Echocardiogram revealed EF 15% with global wall akinesia * Continue guideline directed medical therapy for CHF as tolerated (parameters implemented) * Strict I&Os, daily weights, maintain fluid restriction * Therapeutic Lovenox, transition to NOAC when appropriate * CHA2D2 VASc Score: 2. HAS-BLED Score 0. * Antiarrhythmic agent, amiodarone drip per pharmacy protocol * Monitor and replete electrolytes as needed, K>4 and Mg>2 * Avoid calcium channel blockers At this time, patient is not an ideal candidate for any invasive workup given medical noncompliance. He has a scheduled appointment with new primary pick up operator in [place], Dr. Nilson Strickland, on 04/29/2023 at 0945. Thank you for allowing us to care for this patient. Please call with any questions or concerns. This medical document was created using an electronic medical record system with voice recognition software and computerized dictation system. Although this document has been carefully reviewed, there might still be some phonetic and typographical errors. Occasional wrong-word or ``sound-alike substitutions may have occurred due to the inherent limitations of voice recognition software. These areas are purely typographical due to imperfections of the software programs and do not reflect any compromise in the patient's medical care. Please read the chart carefully and recognize, using context, where these substitutions have occurred. Plan discussed with: Patient, Spouse, Other (father, mother) Date of Service: Mar 20, 2024 Billing Provider: ALLAN BAUTISTA MD Cardiology Common Codes: [id number] [facility] KENYA GUTIERREZ [facility] Mar 20, 2024 16:48
[2024-03-20] MEDS ORDERED: FUROSEMIDE 20 MG TAB PO SCH (18:00)
[2024-03-20] MEDS: FUROSEMIDE 20 MG/2 ML VIAL IV SCH (18:00)
[2024-03-20] MEDS: FUROSEMIDE 20 MG/2 ML VIAL IV ONE (21:53)
[2024-03-20] MEDS: CARVEDILOL 3.125 MG TAB PO SCH (21:56)
[2024-03-20] MEDS: SACUBITRIL-VALSARTAN 24mg/26mg TAB PO SCH (21:57)
[2024-03-20] MEDS: MAGNESIUM SULFATE 1GM/100ML 100 ML IV ONE (22:11)
[2024-03-21] VITALS (16 sets, daily range): BP systolic 82–112; BP diastolic 60–78; PULSE 52–115; RESP 16–20; TEMP 97.2–98; O2SAT 90–98
[2024-03-21] MEDS ORDERED: ALBUTEROL SULF 2.5 MG/0.5ML(0.5%) NEB SOLN NEB PRN (04:45)
[2024-03-21] MEDS ORDERED: IPRATROPIUM BROM 0.5 MG/2.5ML INH SOL NEB PRN (04:45)
[2024-03-21 08:36] LABS: Anion Gap 9 (5-15); Carbon Dioxide 23 mmol/L (20-31); Chloride 105 mmol/L (98-107); Potassium 4.4 mmol/L (3.5-5.1); Sodium 137 mmol/L (136-145)
[2024-03-21 08:37] LABS: Calcium 9.1 mg/dL (8.7-10.4)
[2024-03-21 08:42] LABS: BUN/Creatinine Ratio 14.4 (10.0-20.0); Blood Urea Nitrogen 18 mg/dL (9-23); Glucose 98 mg/dL (74-106)
[2024-03-21 08:43] LABS: Magnesium 2.4 mg/dL (1.6-2.6)
[2024-03-21] MEDS: EMPAGLIFLOZIN 10 MG TAB PO SCH (09:42)
[2024-03-21] MEDS: SPIRONOLACTONE 25 MG TAB PO SCH (10:00)
--- NOTE | 2024-03-21 11:56 | DVHPN2 ---
Consult Progress Note Subjective Review of Systems: CVS:Normal (Denies CP, Palpitations), RESPIRATORY:Abnormal (SOB, Orthopnea) Objective vital signs Vital Sign Date Time Temp Pulse Resp B/P (MAP) Pulse Ox O2 Delivery O2 Flow Rate FiO2 03/21/24 11:09 97.2 63 18 82/60 95 21 97.2 03/21/24 06:48 Room Air* 0 Total Intake and Output 03/20/24 03/20/24 03/21/24 15:00 23:00 07:00 Intake Total 480 ml 850 ml 700 ml Output Total 1350 ml 1190 ml Balance 480 ml -500 ml -490 ml medications Current Medications Medications Dose Ordered Sig/Nimco Route Start Time Stop Time Status Last Admin Dose Admin Sodium Chloride 10 ml Q8HR IV 03/18/24 14:00 03/21/24 05:20 10 ML Acetaminophen 650 mg Q6HP PRN PO 03/18/24 13:30 Ketorolac Tromethamine 15 mg Q6HPRN PRN IV 03/18/24 18:00 03/23/24 17:59 03/20/24 21:50 15 MG Enoxaparin Sodium 100 mg Q12HR SC 03/18/24 22:00 03/21/24 09:42 100 MG Nicotine 1 patch DAILY TD 03/20/24 10:00 03/21/24 10:01 1 PATCH Digoxin 0.125 mg DAILY PO 03/20/24 10:00 03/21/24 09:42 0.125 MG Carvedilol 3.125 mg Q12HR PO 03/20/24 22:00 03/20/24 21:56 3.125 MG Sacubitril/ Valsartan 0.5 tab BID PO 03/20/24 22:00 03/20/24 21:57 0.5 TAB Spironolactone 12.5 mg DAILY PO 03/21/24 10:00 Empaglifozin 10 mg DAILY PO 03/21/24 10:00 03/21/24 09:42 10 MG Furosemide 20 mg BIDD IV 03/20/24 18:00 03/21/24 05:22 20 MG Albuterol 2.5 mg Q4HPRN PRN NEB 03/21/24 04:45 Ipratropium [place] 0.5 mg Q4HPRN PRN NEB 03/21/24 04:45 Amiodarone HCl 200 mg Q12HR PO 03/21/24 22:00 Examination: CVS:Abnormal (Telemetry consistent with Atrial fibrilaltion at 94 bpm.) laboratory and microbiology Laboratory Tests 03/21/24 06:45 03/20/24 06:12 Test 03/21/24 06:45 Range/Units Serum Glucose 98 74-106 mg/dL Problem List/Assessment/Plan Problem List/Assessment/Plan Problem List/Assessment/Plan Atrial fibrillation with rapid ventricular response, new onset Acute on chronic HFrEF, NYHA class III, newly diagnosed 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 Bautista) * Echocardiogram revealed EF 15% with global wall akinesia * Continue guideline directed medical therapy for CHF as tolerated (parameters implemented) * Strict I&Os, daily weights, maintain fluid restriction * Therapeutic Lovenox, transition to NOAC when appropriate * CHA2D2 VASc Score: 2. HAS-BLED Score 0. * Antiarrhythmic agent, amiodarone drip discontinued, patient transitioned to p.o. amiodarone 200 mg twice daily to continue x1 month followed by 200 mg daily. * Monitor and replete electrolytes as needed, K>4 and Mg>2 * Avoid calcium channel blockers At this time, patient is not an ideal candidate for any invasive workup given medical noncompliance. He has a scheduled appointment with new primary thread separator in [place], Dr. Nilson Strickland, on 04/29/2023 at 0945. Patient transitioned to p.o. amiodarone. Heart rate controlled in the 90s. Blood pressure marginal, hypotensive. A.m. BP meds held. Continue trending. Thank you for allowing us to care for this patient. Please call with any questions or concerns. This medical document was created using an electronic medical record system with voice recognition software and computerized dictation system. Although this document has been carefully reviewed, there might still be some phonetic and typographical errors. Occasional wrong-word or ``sound-alike substitutions may have occurred due to the inherent limitations of voice recognition software. These areas are purely typographical due to imperfections of the software programs and do not reflect any compromise in the patient's medical care. Please read the chart carefully and recognize, using context, where these substitutions have occurred. Plan discussed with: Patient Date of Service: Mar 21, 2024 Billing Provider: ALLAN BAUTISTA MD Common Visit Codes: [id number] INP/OBS CARE(HIGH), [id number] CARE- EACH +30MIN RAMÓN JERONIMO AGACNP Mar 21, 2024 11:56
[2024-03-21] MEDS: AMIODARONE HCL 200 MG TAB PO ONE (11:57)
--- NOTE | 2024-03-21 12:42 | DVHPN2 ---
Reviewed: Care Plan, H&P, Labs, Medications, Previous Orders, Radiology Changes from previous H/P or p: No Changes Eyes: No Pain, No Vision change, No Conjunctivae inflammation, No Eyelid inflammation, No Other, No Redness ENT: No Ear pain, No Ear discharge, No Nose pain, No Nose discharge, No Nose congestion, No Mouth pain, No Mouth swelling, No Throat pain, No Throat swelling, No Other Cardiovascular: No Chest Pain, No Palpitations, No Orthopnea, No Paroxysmal Noc. Dyspnea, No Edema, No Lt Headedness; Other (Chest pressure) Respiratory: No Cough, No Dry; Shortness of breath, SOB with excertion; No Wheezing, No Hemoptysis, No Pleuritic Pain, No Sputum, No Other Gastrointestinal: No Nausea, No Vomiting, No Abdominal Pain, No Diarrhea, No Constipation, No Melena, No Hematochezia, No Other Genitourinary: No Dysuria, No Frequency, No Incontinence, No Hematuria, No Retention, No Other Musculoskeletal: No other, No neck pain, No shoulder pain, No arm pain, No back pain, No hand pain, No leg pain, No foot pain Skin: No Rash, No Lesions, No Jaundice, No Bruising, No Other Objective Vitals Vital Signs Date Time Temp Pulse Resp B/P (MAP) Pulse Ox O2 Delivery O2 Flow Rate FiO2 03/21/24 11:09 97.2 63 18 82/60 95 21 97.2 03/21/24 06:48 Room Air* 0 Intake/Output Intake and Output 03/21/24 07:00 Intake Total 2030 ml Output Total 2540 ml Balance -510 ml Intake Oral 1680 ml IV Total 350 ml Output Urine Total 2540 ml # Bowel Movements 4 Medications Current Medications Medications Dose Ordered Sig/Nimco Route Start Time Stop Time Status Last Admin Dose Admin Sodium Chloride 10 ml Q8HR IV 03/18/24 14:00 03/21/24 05:20 10 ML Acetaminophen 650 mg Q6HP PRN PO 03/18/24 13:30 Ketorolac Tromethamine 15 mg Q6HPRN PRN IV 03/18/24 18:00 03/23/24 17:59 03/20/24 21:50 15 MG Enoxaparin Sodium 100 mg Q12HR SC 03/18/24 22:00 03/21/24 09:42 100 MG Nicotine 1 patch DAILY TD 03/20/24 10:00 03/21/24 10:01 1 PATCH Digoxin 0.125 mg DAILY PO 03/20/24 10:00 03/21/24 09:42 0.125 MG Carvedilol 3.125 mg Q12HR PO 03/20/24 22:00 03/20/24 21:56 3.125 MG Sacubitril/ Valsartan 0.5 tab BID PO 03/20/24 22:00 03/20/24 21:57 0.5 TAB Spironolactone 12.5 mg DAILY PO 03/21/24 10:00 Empaglifozin 10 mg DAILY PO 03/21/24 10:00 03/21/24 09:42 10 MG Furosemide 20 mg BIDD IV 03/20/24 18:00 03/21/24 05:22 20 MG Albuterol 2.5 mg Q4HPRN PRN NEB 03/21/24 04:45 Ipratropium [place] 0.5 mg Q4HPRN PRN NEB 03/21/24 04:45 Amiodarone HCl 200 mg Q12HR PO 03/21/24 22:00 Laboratory Results Laboratory Tests 03/20/24 06:12 03/21/24 06:45 Chemistry Test 03/21/24 06:45 Calcium Level 9.1 mg/dL (8.7-10.4) Magnesium Level 2.4 mg/dL (1.6-2.6) Cardiac Markers Test 03/21/24 06:45 B-Type Natriuretic Peptide 432.21 pg/mL (0-100) Urinalysis Test 03/18/24 18:02 Urine Color Yellow (Yellow) Urine Clarity Clear (Clear) Urine pH 6.5 (5.0-9.0) Urine Specific [place] > 1.050 (1.001-1.035) Urine Protein 3+ (Negative) H Urine Ketones 1+ (Negative) H Urine Blood Negative /uL (Negative) Urine Nitrite Negative (Negative) Urine Bilirubin Negative (Negative) Urine Urobilinogen Normal mg/dL (Negative) Urine Leukocyte Esterase Negative /uL (Negative) Urine RBC <1 /hpf (0 - 3) Urine WBC 1 /hpf (0 - 3) Urine Squamous Epithelial Cells Few /hpf (<5) Urine Bacteria None seen /hpf (None Seen) Urine Mucus Few (None Seen) Urine Glucose Trace mg/dL (Normal) Labs and/or images reviewed: Labs reviewed by me, Image(s) reviewed by me Assessment/Plan Assessment/Plan Covering for Dr. Tran Atrial fibrillation with rapid ventricular response, new onset, amiodarone 200 mg po b.i.d. 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
[2024-03-21] MEDS: NICOTINE 7MG/24HR TOPICAL PATCH TD ONE (15:00)
[2024-03-21] MEDS: APIXABAN 5 MG TAB PO SCH (21:45)
[2024-03-21] MEDS: AMIODARONE HCL 200 MG TAB PO SCH (21:45)
[2024-03-22] VITALS (11 sets, daily range): BP systolic 91–131; BP diastolic 42–91; PULSE 58–116; RESP 16–19; TEMP 97–97.7; O2SAT 91–98
--- NOTE | 2024-03-22 11:46 | DVHPN2 ---
Reviewed: Care Plan, H&P, Labs, Medications, Previous Orders, Radiology Changes from previous H/P or p: No Changes Eyes: No Pain, No Vision change, No Conjunctivae inflammation, No Eyelid inflammation, No Other, No Redness ENT: No Ear pain, No Ear discharge, No Nose pain, No Nose discharge, No Nose congestion, No Mouth pain, No Mouth swelling, No Throat pain, No Throat swelling, No Other Cardiovascular: No Chest Pain, No Palpitations, No Orthopnea, No Paroxysmal Noc. Dyspnea, No Edema, No Lt Headedness; Other (Chest pressure) Respiratory: No Cough, No Dry; Shortness of breath, SOB with excertion; No Wheezing, No Hemoptysis, No Pleuritic Pain, No Sputum, No Other Gastrointestinal: No Nausea, No Vomiting, No Abdominal Pain, No Diarrhea, No Constipation, No Melena, No Hematochezia, No Other Genitourinary: No Dysuria, No Frequency, No Incontinence, No Hematuria, No Retention, No Other Musculoskeletal: No other, No neck pain, No shoulder pain, No arm pain, No back pain, No hand pain, No leg pain, No foot pain Skin: No Rash, No Lesions, No Jaundice, No Bruising, No Other Objective Vitals Vital Signs Date Time Temp Pulse Resp B/P (MAP) Pulse Ox O2 Delivery O2 Flow Rate FiO2 03/22/24 10:43 114 117/68 03/22/24 08:21 97.6 18 91 97.6 03/22/24 06:58 Room Air* 0 21 Intake/Output Intake and Output 03/22/24 07:00 Intake Total 1480 ml Output Total 3400 ml Balance -1920 ml Intake Oral 1480 ml Output Urine Total 3400 ml # Bowel Movements 4 Medications Current Medications Medications Dose Ordered Sig/Nimco Route Start Time Stop Time Status Last Admin Dose Admin Sodium Chloride 10 ml Q8HR IV 03/18/24 14:00 03/22/24 05:22 10 ML Acetaminophen 650 mg Q6HP PRN PO 03/18/24 13:30 Ketorolac Tromethamine 15 mg Q6HPRN PRN IV 03/18/24 18:00 03/23/24 17:59 03/22/24 05:42 15 MG Nicotine 1 patch DAILY TD 03/20/24 10:00 03/22/24 10:41 1 PATCH Digoxin 0.125 mg DAILY PO 03/20/24 10:00 03/22/24 10:42 0.125 MG Carvedilol 3.125 mg Q12HR PO 03/20/24 22:00 03/22/24 10:43 3.125 MG Sacubitril/ Valsartan 0.5 tab BID PO 03/20/24 22:00 03/22/24 10:41 0.5 TAB Spironolactone 12.5 mg DAILY PO 03/21/24 10:00 03/22/24 10:43 12.5 MG Empaglifozin 10 mg DAILY PO 03/21/24 10:00 03/22/24 10:42 10 MG Furosemide 20 mg BIDD IV 03/20/24 18:00 03/22/24 05:41 20 MG Albuterol 2.5 mg Q4HPRN PRN NEB 03/21/24 04:45 Ipratropium [place] 0.5 mg Q4HPRN PRN NEB 03/21/24 04:45 Amiodarone HCl 200 mg Q12HR PO 03/21/24 22:00 03/22/24 10:40 200 MG Apixaban 5 mg DAILY PO 03/21/24 22:00 03/22/24 10:41 5 MG Laboratory Results Laboratory Tests 03/20/24 06:12 03/21/24 06:45 Urinalysis Test 03/18/24 18:02 Urine Color Yellow (Yellow) Urine Clarity Clear (Clear) Urine pH 6.5 (5.0-9.0) Urine Specific [place] > 1.050 (1.001-1.035) Urine Protein 3+ (Negative) H Urine Ketones 1+ (Negative) H Urine Blood Negative /uL (Negative) Urine Nitrite Negative (Negative) Urine Bilirubin Negative (Negative) Urine Urobilinogen Normal mg/dL (Negative) Urine Leukocyte Esterase Negative /uL (Negative) Urine RBC <1 /hpf (0 - 3) Urine WBC 1 /hpf (0 - 3) Urine Squamous Epithelial Cells Few /hpf (<5) Urine Bacteria None seen /hpf (None Seen) Urine Mucus Few (None Seen) Urine Glucose Trace mg/dL (Normal) Labs and/or images reviewed: Labs reviewed by me, Image(s) reviewed by me Assessment/Plan Assessment/Plan Covering for Dr. Marc Atrial fibrillation with rapid ventricular response, new onset, amiodarone 200 mg po b.i.d. 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
--- NOTE | 2024-03-22 13:59 | DVHPN2 ---
Consult Progress Note Subjective Patient reports: Feels better Objective vital signs Vital Sign Date Time Temp Pulse Resp B/P (MAP) Pulse Ox O2 Delivery O2 Flow Rate FiO2 03/22/24 12:48 97.7 76 18 95/42 (59) 94 97.7 03/22/24 06:58 Room Air* 0 21 Total Intake and Output 03/21/24 03/21/24 03/22/24 15:00 23:00 07:00 Intake Total 480 ml 700 ml 300 ml Output Total 2600 ml 800 ml Balance 480 ml -1900 ml -500 ml medications Current Medications Medications Dose Ordered Sig/Nimco Route Start Time Stop Time Status Last Admin Dose Admin Sodium Chloride 10 ml Q8HR IV 03/18/24 14:00 03/22/24 13:30 10 ML Acetaminophen 650 mg Q6HP PRN PO 03/18/24 13:30 Ketorolac Tromethamine 15 mg Q6HPRN PRN IV 03/18/24 18:00 03/23/24 17:59 03/22/24 05:42 15 MG Nicotine 1 patch DAILY TD 03/20/24 10:00 03/22/24 10:41 1 PATCH Digoxin 0.125 mg DAILY PO 03/20/24 10:00 03/22/24 10:42 0.125 MG Carvedilol 3.125 mg Q12HR PO 03/20/24 22:00 03/22/24 10:43 3.125 MG Sacubitril/ Valsartan 0.5 tab BID PO 03/20/24 22:00 03/22/24 10:41 0.5 TAB Spironolactone 12.5 mg DAILY PO 03/21/24 10:00 03/22/24 10:43 12.5 MG Empaglifozin 10 mg DAILY PO 03/21/24 10:00 03/22/24 10:42 10 MG Furosemide 20 mg BIDD IV 03/20/24 18:00 03/22/24 05:41 20 MG Albuterol 2.5 mg Q4HPRN PRN NEB 03/21/24 04:45 Ipratropium [place] 0.5 mg Q4HPRN PRN NEB 03/21/24 04:45 Amiodarone HCl 200 mg Q12HR PO 03/21/24 22:00 03/22/24 10:40 200 MG Apixaban 5 mg DAILY PO 03/21/24 22:00 03/22/24 10:41 5 MG Examination: CVS:Abnormal (Irregular rate. Tele consistent with atrial fibrillation at 98 BPM with overnight tele review showing episode of RVR with HR in 150's. 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 Bautista) * Echocardiogram revealed EF 15% with global wall akinesia * Continue guideline directed medical therapy for CHF as tolerated (parameters implemented) * Strict I&Os, daily weights, maintain fluid restriction * Therapeutic Lovenox, transition to NOAC when appropriate * CHA2D2 VASc Score: 2. HAS-BLED Score 0. * Antiarrhythmic agent, amiodarone drip discontinued, patient transitioned to p.o. amiodarone 200 mg twice daily to continue x1 month followed by 200 mg daily. * Monitor and replete electrolytes as needed, K>4 and Mg>2 * Avoid calcium channel blockers At this time, patient is not an ideal candidate for any invasive workup given medical noncompliance. He has a scheduled appointment with new primary office asst in [place], Dr. Nilson Strickland, on 04/29/2023 at 0945. Patient transitioned to p.o. amiodarone, to continue with 200 mg p.o. twice daily x1 month followed by 200 mg p.o. daily. Continue on Coreg and digoxin. Heart rate controlled in the 90s. Blood pressure marginal, hypotensive. We will hold Entresto continue on Coreg for heart rate control. Continue trending. Thank you for allowing us to care for this patient. Please call with any questions or concerns. This medical document was created using an electronic medical record system with voice recognition software and computerized dictation system. Although this document has been carefully reviewed, there might still be some phonetic and typographical errors. Occasional wrong-word or ``sound-alike substitutions may have occurred due to the inherent limitations of voice recognition software. These areas are purely typographical due to imperfections of the software programs and do not reflect any compromise in the patient's medical care. Please read the chart carefully and recognize, using context, where these substitutions have occurred. Plan discussed with: Patient Date of Service: Mar 22, 2024 Billing Provider: ALLAN BAUTISTA MD Common Visit Codes: [id number] INP/OBS CARE(HIGH) [facility] Mar 22, 2024 13:59
[2024-03-23 01:00] VITALS: BP 103/66; PULSE 101; RESP 18; TEMP 97.9; O2SAT 97
[2024-03-23 05:00] VITALS: BP 93/69; PULSE 96; RESP 18; TEMP 97.8; O2SAT 95
[2024-03-23 08:00] VITALS: PULSE 109
[2024-03-23 09:00] VITALS: BP 92/62; PULSE 120; RESP 18; TEMP 97.9; O2SAT 94
[2024-03-23 09:30] VITALS: O2SAT 96
--- NOTE | 2024-03-23 11:43 | DVHPN2 ---
Reviewed: Care Plan, H&P, Labs, Medications, Previous Orders, Radiology Changes from previous H/P or p: No Changes Eyes: No Pain, No Vision change, No Conjunctivae inflammation, No Eyelid inflammation, No Other, No Redness ENT: No Ear pain, No Ear discharge, No Nose pain, No Nose discharge, No Nose congestion, No Mouth pain, No Mouth swelling, No Throat pain, No Throat swelling, No Other Cardiovascular: No Chest Pain, No Palpitations, No Orthopnea, No Paroxysmal Noc. Dyspnea, No Edema, No Lt Headedness; Other (Chest pressure) Respiratory: No Cough, No Dry; Shortness of breath, SOB with excertion; No Wheezing, No Hemoptysis, No Pleuritic Pain, No Sputum, No Other Gastrointestinal: No Nausea, No Vomiting, No Abdominal Pain, No Diarrhea, No Constipation, No Melena, No Hematochezia, No Other Genitourinary: No Dysuria, No Frequency, No Incontinence, No Hematuria, No Retention, No Other Musculoskeletal: No other, No neck pain, No shoulder pain, No arm pain, No back pain, No hand pain, No leg pain, No foot pain Skin: No Rash, No Lesions, No Jaundice, No Bruising, No Other Objective Vitals Vital Signs Date Time Temp Pulse Resp B/P (MAP) Pulse Ox O2 Delivery O2 Flow Rate FiO2 03/23/24 10:40 120 03/23/24 10:39 92/62 03/23/24 09:30 96 Room Air* 0 21 03/23/24 09:00 97.9 18 97.9 Intake/Output Intake and Output 03/23/24 07:00 Intake Total 1680 ml Output Total 2200 ml Balance -520 ml Intake Oral 1680 ml Output Urine Total 2200 ml # Bowel Movements 4 Medications Current Medications Medications Dose Ordered Sig/Nimco Route Start Time Stop Time Status Last Admin Dose Admin Sodium Chloride 10 ml Q8HR IV 03/18/24 14:00 03/23/24 06:20 10 ML Acetaminophen 650 mg Q6HP PRN PO 03/18/24 13:30 Ketorolac Tromethamine 15 mg Q6HPRN PRN IV 03/18/24 18:00 03/23/24 17:59 03/22/24 17:49 15 MG Nicotine 1 patch DAILY TD 03/20/24 10:00 03/23/24 10:38 1 PATCH Digoxin 0.125 mg DAILY PO 03/20/24 10:00 03/23/24 10:40 0.125 MG Carvedilol 3.125 mg Q12HR PO 03/20/24 22:00 03/23/24 10:39 3.125 MG Spironolactone 12.5 mg DAILY PO 03/21/24 10:00 03/23/24 10:40 12.5 MG Empaglifozin 10 mg DAILY PO 03/21/24 10:00 03/23/24 10:40 10 MG Furosemide 20 mg BIDD IV 03/20/24 18:00 03/23/24 06:19 20 MG Amiodarone HCl 200 mg Q12HR PO 03/21/24 22:00 03/23/24 10:40 200 MG Apixaban 5 mg DAILY PO 03/21/24 22:00 03/23/24 10:38 5 MG Laboratory Results Laboratory Tests 03/20/24 06:12 03/21/24 06:45 Urinalysis Test 03/18/24 18:02 Urine Color Yellow (Yellow) Urine Clarity Clear (Clear) Urine pH 6.5 (5.0-9.0) Urine Specific [place] > 1.050 (1.001-1.035) Urine Protein 3+ (Negative) H Urine Ketones 1+ (Negative) H Urine Blood Negative /uL (Negative) Urine Nitrite Negative (Negative) Urine Bilirubin Negative (Negative) Urine Urobilinogen Normal mg/dL (Negative) Urine Leukocyte Esterase Negative /uL (Negative) Urine RBC <1 /hpf (0 - 3) Urine WBC 1 /hpf (0 - 3) Urine Squamous Epithelial Cells Few /hpf (<5) Urine Bacteria None seen /hpf (None Seen) Urine Mucus Few (None Seen) Urine Glucose Trace mg/dL (Normal) Labs and/or images reviewed: Labs reviewed by me, Image(s) reviewed by me Assessment/Plan Assessment/Plan Covering for Dr. Tran Atrial fibrillation with rapid ventricular response, new onset, amiodarone 200 mg po b.i.d. 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
[2024-03-23] MEDS ORDERED: APIX5TAB PO (11:49)
[2024-03-23] MEDS ORDERED: SPIR25TA PO (11:49)
[2024-03-23] MEDS ORDERED: FURO1TAB31 PO (11:49)
[2024-03-23] MEDS ORDERED: DIGO0.12 PO (11:49)
[2024-03-23] MEDS ORDERED: CARV-214 PO (11:49)
[2024-03-23] MEDS ORDERED: EMPA1TAB PO (11:49)
[2024-03-23] MEDS ORDERED: NIC21P TOP (11:49)
[2024-03-23] MEDS ORDERED: AMIO200T33 PO (11:49)
--- NOTE | 2024-03-23 11:58 | DVHDS2 ---
Discharge Summary Date of Admission Mar 18, 2024 at 13:21 Date of Discharge: Mar 23, 2024 Admitting Diagnosis Palpitations and chest pain Wounds: None Labs/Diagnostic Data: Laboratory Results Test 03/22/24 05:54 03/21/24 06:45 03/20/24 06:12 03/19/24 05:05 Digoxin Level 0.32 ng/mL (0.8-2) Sodium Level 137 mmol/L (136-145) Potassium Level 4.4 mmol/L (3.5-5.1) Chloride Level 105 mmol/L (98-107) Carbon Dioxide Level 23 mmol/L (20-31) Anion Gap 9 (5-15) Blood Urea Nitrogen 18 mg/dL (9-23) Creatinine 1.25 mg/dL (0.700-1.30) Glomerular Filtration Rate Calc 73 mL/min (>90) BUN/Creatinine Ratio 14.4 (10.0-20.0) Serum Glucose 98 mg/dL (74-106) Calcium Level 9.1 mg/dL (8.7-10.4) Magnesium Level 2.4 mg/dL (1.6-2.6) B-Type Natriuretic Peptide 432.21 pg/mL (0-100) White Blood Count 8.6 10^3/uL (4.4-10.8) Red Blood Count 5.48 10^6/uL (4.5-5.90) Hemoglobin 16.3 g/dL (13.5-17.5) Hematocrit 48.5 % (41.0-53.0) Mean Corpuscular Volume 88.4 fL (80.0-100.0) Mean Corpuscular Hemoglobin 29.8 pg (28.0-32.0) Mean Corpuscular Hemoglobin Concent 33.7 g/dL (32.0-36.0) Red Cell Distribution Width 14.8 % (11.8-14.3) Platelet Count 194 10^3/uL (140-450) Mean Platelet Volume 8.9 fL (6.9-10.8) Neutrophils (%) (Auto) 79.0 % (37.0-80.0) Lymphocytes (%) (Auto) 11.4 % (10.0-50.0) Monocytes (%) (Auto) 8.1 % (0.0-12.0) Eosinophils (%) (Auto) 1.0 % (0.0-7.0) Basophils (%) (Auto) 0.5 % (0.0-2.0) Neutrophils # (Auto) 6.8 10 ^3/uL (1.6-8.6) Lymphocytes # (Auto) 1.0 10 ^3/uL (0.4-5.4) Monocytes # (Auto) 0.7 10 ^3/uL (0-1.3) Eosinophils # (Auto) 0.1 10 ^3/uL (0-0.8) Basophils # (Auto) 0 10 ^3/uL (0-0.2) Nucleated Red Blood Cells 0.1 % Total Bilirubin 1.0 mg/dL (0.2-1.0) Aspartate Amino Transferase (AST) 28 U/L (13-40) Alanine Aminotransferase (ALT) 51 U/L (7-40) Alkaline Phosphatase 25 U/L (46-116) Total Protein 6.2 g/dL (5.7-8.2) Albumin 4.1 g/dL (3.2-4.8) Test 03/18/24 18:02 03/18/24 08:53 03/18/24 06:11 Urine Color Yellow (Yellow) Urine Clarity Clear (Clear) Urine pH 6.5 (5.0-9.0) Urine Specific [place] > 1.050 (1.001-1.035) Urine Protein 3+ (Negative) Urine Ketones 1+ (Negative) Urine Blood Negative /uL (Negative) Urine Nitrite Negative (Negative) Urine Bilirubin Negative (Negative) Urine Urobilinogen Normal mg/dL (Negative) Urine Leukocyte Esterase Negative /uL (Negative) Urine RBC <1 /hpf (0 - 3) Urine WBC 1 /hpf (0 - 3) Urine Squamous Epithelial Cells Few /hpf (<5) Urine Bacteria None seen /hpf (None Seen) Urine Mucus Few (None Seen) Urine Glucose Trace mg/dL (Normal) Urine Opiates Screen Neg (NEGATIVE) Urine Fentanyl Screen Neg (NEGATIVE) Urine Barbiturates Screen Neg (NEGATIVE) Urine Phencyclidine Screen Neg (NEGATIVE) Urine Amphetamines Screen Neg (NEGATIVE) Urine Benzodiazepines Screen Neg (NEGATIVE) Urine Cocaine Screen Pos (NEGATIVE) Urine Cannabinoids Screen Pos (NEGATIVE) Troponin I High Sensitivity 12 ng/L (</=54) Prothrombin Time 10.9 sec (9.3-11.8) Prothrombin Time INR 1.03 (0.9-1.15) Activated Partial Thromboplast Time 24.4 SEC (24.5-34.5) D-Dimer, Quantitative 0.70 mg/L FEU (0.0-0.49) Hemoglobin A1c 5.7 % A1C (<5.7) Triglycerides Level 115 mg/dL (< 150) Cholesterol Level 142 mg/dL (< 200) LDL Cholesterol 108 mg/dL (< 100) HDL Cholesterol 31 mg/dL (40-59) Thyroid Stimulating Hormone (TSH) 2.57 uIU/mL (0.55-4.78) Other Laboratory Tests 03/21/24 06:45 03/20/24 06:12 Brief Hx & Hospital Course: Patient was originally seen by hospitalist Dr Tran 43-year-old male with a history of hypertension hypercholesterolemia meth abuse cocaine abuse morbidly obese came in complaining of palpitations and shortness of breaths. Patient was found to be AFib with RVR seen by assistant unit forester Dr [place]. Started on amiodarone digoxin Eliquis. The patient also has a congestive heart failure class three new diagnosis placed on Jardiance Entresto Coreg Aldactone ejection fraction 15 percent patient also has mitral and tricuspid valve regurgitation. Per Cardiology patient is not a candidate for any invasive procedure secondary to his noncompliance and drug abuse. The patient has an appointment with his assistant unit forester at [place] . Patient is asymptomatic with no chest pain or palpitations and stable vital signs and requesting to be discharged home today. Discharged home. Medications transmitted to the pharmacy. Consults/Reason for consult Cardiology Dr. Cotton Operations or Procedures Echocardiogram Condition at Discharge: Poor Final Diagnosis/Problems List Atrial fibrillation with rapid ventricular response, new onset, amiodarone 200 mg po b.i.d. 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 Mitral and tricuspid valve regurgitation mild to moderate degree Hyperlipidemia, newly diagnosed History of methamphetamine use Positive for cocaine/tobacco use Obesity Discharge Disposition: Home Discharge Instruct/Medications Diet: Cardiac 2g Na,low cholest Activity: Light activity Follow Up/Referral: Fill The prescription today and start taking the medications Stop using cocaine and methamphetamine Keep your appointment with your assistant unit forester at [place] Medications: Eliquis Amiodarone Lasix Jardiance Aldactone Coreg Digoxin Nicoderm Transmitted to pharmacy 39 (Time Taken for discharge summary 39 minutes) Discharge Statement: "Patient was advised to return to the ER or call 911 if any headaches, dizziness, shortness of breath, chest pain, abdominal pain, bleeding, fevers, or worsening of medical condition. Patient was counseled about treatment plan, medications, possible side effects, patientverbalized understanding. All questions were answered to the best of my ability. This discharge took greater then 30 minutes in planning, reviewing documentation, counseling the patient, and discussing with other team members." ASSESSMENT ASSESSMENT Hospital Course Improved Assessment Atrial fibrillation with rapid ventricular response, new onset, amiodarone 200 mg po b.i.d. 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
[2024-03-23 12:25] VITALS: BP 92/62; PULSE 96
== END 2024-03-23 13:10 | disposition home or self-care (01) | DRG 291 ==
LOC: ER 05:42 → EDBD 05:42 → TELE 13:21 → TELE-WESTW 03-19 15:40
PROVIDERS: ADMIT Nurse Practitioner Family; ATTEND Family Medicine
DX: I11.0 Hypertensive heart disease with heart failure (principal); I50.23 Acute on chronic systolic (congestive) heart failure; I48.0 Paroxysmal atrial fibrillation; I42.8 Other cardiomyopathies; E78.5 Hyperlipidemia, unspecified; I08.1 Rheumatic disorders of both mitral and tricuspid valves; I27.20 Pulmonary hypertension, unspecified; E66.9 Obesity, unspecified; F17.290 Nicotine dependence, other tobacco product, uncomplicated; R09.89 Other specified symptoms and signs involving the circulatory and respiratory systems; E78.00 Pure hypercholesterolemia, unspecified; E66.01 Morbid (severe) obesity due to excess calories; F14.10 Cocaine abuse, uncomplicated; F15.10 Other stimulant abuse, uncomplicated; I42.7 Cardiomyopathy due to drug and external agent; Z68.30 Body mass index [BMI] 30.0-30.9, adult; Z91.199 Patient's noncompliance with other medical treatment and regimen due to unspecified reason
CPT/HCPCS: 36415; 71045; 71275; 80048; 80053; 80061; 80162; 80307; 81001; 83036; 83735; 83880; 84443; 84484; 85025; 85379; 85610; 85730; 93005; 93306; 94640; 96361; 96374; 96375; G0378; J1885